=== PATIENT | female | born 1970 | race African-American/Black ===

== ENCOUNTER 2017-05-06 08:10 | Emergency (ER) | payer BC ==
[2017-05-06] MEDS ORDERED: FENTANYL CITRATE INJ/PF 100 MCG/2 ML AMPUL IV ONE (10:03)
--- NOTE | 2017-05-06 10:04 | ER Document Report ---
ED GI/ <KING LEWIS - Last Filed: 05/06/17 15:21> - General Mode of Arrival: Ambulatory Information source: Patient TRAVEL OUTSIDE OF THE [place] IN LAST 30 DAYS: No - HPI Patient complains to provider of: Abdominal pain Onset: Yesterday Location: Other - vin-umbilical Associated symptoms: Other - see notes above <JOHN GARAY - Last Filed: 05/06/17 15:31> - General Chief Complaint: Abdominal Pain Stated Complaint: ABDOMINAL PAIN Notes: 46 year old female with history of an umbilical hernia (2013 surgery secondary to incarcerated umbilical hernia) presents to the ED complaining of vin- umbilical abdominal pain which radiates to the right upper and left upper quadrants that started yesterday. Patient reports that she is unable to sleep secondary to the pain. Patient reports having normal bowel movements and passing gas with her last bowel movement yesterday. Patient denies nausea, vomiting, diarrhea, fever, or any bloody stools. Patient denies history of a hysterectomy. (JOHN GARAY) - Related Data Allergies/Adverse Reactions: No Known Allergies Allergy (Verified 10/01/13 06:54) Past Medical History - General Information source: Patient - Social History Smoking Status: Never Smoker Chew tobacco use (# tins/day): No Frequency of alcohol use: None Drug Abuse: None Family History: Reviewed & Not Pertinent Patient has suicidal ideation: No Patient has homicidal ideation: No Pulmonary Medical History: Reports: Hx Asthma Neurological Medical History: Reports: Hx Seizures - None since she was 7 years old Endocrine Medical History: Denies: Hx Diabetes Mellitus Type 1, Hx Diabetes Mellitus Type 2 Renal/ Medical History: Denies: Hx Peritoneal Dialysis GI Medical History: Reports: Other - umbilical hernia and history of incarcerated umbilical hernia (2013) Musculoskeltal Medical History: Reports Hx Arthritis Past Surgical History: Reports: Hx Section - X 3, Hx Herniorrhaphy - Immunizations Hx Diphtheria, Pertussis, Tetanus Vaccination: No <JOHN GARAY - Last Filed: 05/06/17 15:31> Review of Systems - Review of Systems Constitutional: No symptoms reported EENT: No symptoms reported Cardiovascular: No symptoms reported Respiratory: No symptoms reported Gastrointestinal: See HPI, Abdominal pain - vin-umbilical, Last bowel movement - yesterday; normal. denies: Diarrhea, Nausea, Vomiting, Black stools Genitourinary: No symptoms reported Female Genitourinary: No symptoms reported Musculoskeletal: No symptoms reported Skin: No symptoms reported Hematologic/Lymphatic: No symptoms reported Neurological/Psychological: No symptoms reported -: Yes All other systems reviewed and negative <JOHN GARAY - Last Filed: 05/06/17 15:31> Physical Exam - General General appearance: Alert In distress: None - HEENT Head: Normocephalic, Atraumatic Eyes: Normal Extraocular movements intact: Yes Pupils: PERRL - Respiratory Respiratory status: No respiratory distress Breath sounds: Normal - Cardiovascular Rhythm: Regular Heart sounds: Normal auscultation - Abdominal Inspection: Normal Bowel sounds: Normal Tenderness: Tender - umbilical tenderness to palpation with no evidence of induration or warmth. - Back Back: Normal - Extremities General upper extremity: Normal inspection, Normal ROM General lower extremity: Normal inspection, Normal ROM - Neurological Neuro grossly intact: Yes Cognition: Normal Orientation: AAOx4 Kavitha Coma Scale Eye Opening: Spontaneous Kavitha Coma Scale Verbal: Oriented Kavitha Coma Scale Motor: Obeys Commands [place] Coma Scale Total: 15 Speech: Normal - Psychological Associated symptoms: Normal affect, Normal mood - Skin Skin Temperature: Warm Skin Moisture: Dry Skin Color: Normal <JOHN GARAY - Last Filed: 05/06/17 15:31> - Vital signs Vitals: Temp Pulse Resp BP Pulse Ox 98.4 F 74 16 129/85 H 98 05/06/17 08:14 05/06/17 08:14 05/06/17 08:14 05/06/17 08:14 05/06/17 08:14 Course - Laboratory Result Diagrams: 05/06/17 10:50 05/06/17 12:27 <KING LEWIS H - Last Filed: 05/06/17 15:21> - Laboratory Result Diagrams: 05/06/17 10:50 05/06/17 12:27 <JOHN GARAY - Last Filed: 05/06/17 15:31> - Re-evaluation Re-evalutation: 05/06/17 15:21 Patient well-appearing symptoms improved with medications. Patient is shown to have herniated fat hernia. There is no evidence of strangulated or incarcerated bowel on CT scan. Discussed findings with patient as her symptoms are well controlled will provide narcotics and Zofran. She is to follow-up with her primary care physician in regards to a surgery referral. Strict abdominal pain return precautions provided and I discussed in detail regarding return precautions including nausea vomiting or fevers she always has risk of incarcerated or herniation of bowel but no signs of that at this time (KING LEWIS) - Vital Signs Vital signs: Temp Pulse Resp BP Pulse Ox 98.2 F 69 16 149/77 H 100 05/06/17 15:19 05/06/17 15:19 05/06/17 15:19 05/06/17 15:19 05/06/17 15:19 - Laboratory Laboratory results interpreted by me: 05/06/17 05/06/17 10:50 13:44 Hgb 11.6 L Hct 35.6 L RDW 16.1 H Urine Blood LARGE H Discharge <KING LEWIS - Last Filed: 05/06/17 15:21> <JOHN GARAY - Last Filed: 05/06/17 15:31> - Discharge Clinical Impression: Fatty hernia of linea alba Condition: Good Disposition: HOME, SELF-CARE Instructions: Abdominal Pain ([facility]) Additional Instructions: Please follow up with your primary care provider regarding your visit to the ED today. Please return to the ED for any new or worsening symptoms. No lifting over 20 lbs until seen by your primary care provider. Prescriptions: Ondansetron [Zofran Odt 4 mg Tablet] 1 tab PO Q4H PRN #15 tab.rapdis PRN Reason: For Nausea/Vomiting Oxycodone HCl/Acetaminophen [Percocet 5-325 mg Tablet] 1 - 2 tab PO ASDIR PRN # 15 tablet PRN Reason: Forms: Return to Work Scribe Documentation - Scribe Written by Scribe:: Jones Fishman, 05/06/2017 1113 acting as scribe for :: Demetrius <JOHN GARAY - Last Filed: 05/06/17 15:31>
[2017-05-06 11:04] LABS: ABSOLUTE EOSINOPHILS # (AUTO) 0.1 10^3/uL (0.0-0.6); ABSOLUTE LYMPHOCYTES (AUTO) 2.3 10^3/uL (0.5-4.7); ABSOLUTE MONOCYTES (AUTO) 0.5 10^3/uL (0.1-1.4); ABSOLUTE NEUT (AUTO) 2.8 10^3/uL (1.7-8.2); BASOPHILS % (AUTO) 0.9 % (0-2); EOSINOPHILS % (AUTO) 1.4 % (0-6); HEMATOCRIT 35.6 % (36.0-47.0); HEMOGLOBIN 11.6 g/dL (12.0-15.5); LYMPHOCYTES % (AUTO) 40.5 % (13-45); MEAN CORPUSCULAR HEMOGLOBIN 27.5 pg (27.0-33.4); MEAN CORPUSCULAR HGB CONC 32.6 g/dL (32.0-36.0); MEAN CORPUSCULAR VOLUME 84 fl (80-97); PLATELET COUNT 243 10^3/uL (150-450); RED BLOOD COUNT 4.22 10^6/uL (3.72-5.28); RED CELL DISTRIBUTION WIDTH 16.1 % (11.5-14.0); SEGMENTED NEUTROPHILS % (AUTO) 49.2 % (42-78); TOTAL CELLS COUNTED % (AUTO) 100 %; WHITE BLOOD COUNT 5.7 10^3/uL (4.0-10.5)
[2017-05-06 13:09] LABS: ALANINE AMINOTRANSFERASE 24 U/L (9-52); ALBUMIN 4.4 g/dL (3.5-5.0); ALKALINE PHOSPHATASE 58 U/L (38-126); ANION GAP 12 (5-19); ASPARTATE AMINO TRANSFERASE 26 U/L (14-36); BILIRUBIN,DIRECT 0.3 mg/dL (0.0-0.4); BILIRUBIN,TOTAL 0.4 mg/dL (0.2-1.3); BLOOD UREA NITROGEN 9 mg/dL (7-20); CARBON DIOXIDE 23 mmol/L (22-30); CHLORIDE 106 mmol/L (98-107); GLUCOSE 86 mg/dL (75-110); LIPASE 57.1 U/L (23-300); POTASSIUM 3.7 mmol/L (3.6-5.0); SODIUM 141.2 mmol/L (137-145); TOTAL PROTEIN 7.5 g/dL (6.3-8.2)
--- NOTE | 2017-05-06 14:00 | RADIOLOGY REPORT (SQ) ---
EXAM DESCRIPTION: CT ABD/PELVIS WITH IV ONLY COMPLETED DATE/TIME: 05/06/2017 1:41 pm REASON FOR STUDY: abd pain, hx of hernia repair COMPARISON: 09/02/2013 TECHNIQUE: CT scan of the abdomen and pelvis performed using helical scanning technique with dynamic intravenous contrast injection. No oral contrast. Images reviewed with lung, soft tissue, and bone windows. Reconstructed coronal and sagittal MPR images reviewed. Delayed images for evaluation of the urinary system also acquired. All images stored on PACS. All CT scanners at this facility use dose modulation, iterative reconstruction, and/or weight based d osing when appropriate to reduce radiation dose to as low as reasonably achievable (ALARA). [facility]: Dose Right [facility]: CareDose [facility]: Dose Right [facility]: Teradose 4D [facility]: Stantum CONTRAST TYPE AND DOSE: contrast/concentration: Isovue 370.00 mg/ml; Total Contrast Delivered: 80.0 ml; Total Saline Delivered: 68.0 ml RENAL FUNCTION: Creatinine 0.71 RADIATION DOSE: CT Rad equipment meets quality standard of care and radiation dose reduction techniq ues were employed. CTDIvol: 9.3 - 11.7 mGy. DLP: 1039 mGy-cm.. LIMITATIONS: None. FINDINGS: LOWER CHEST: No significant findings. No nodules or infiltrates. LIVER: Normal size. No masses. No dilated ducts. SPLEEN: Normal size. No focal lesions. PANCREAS: No masses. No significant calcifications. No adjacent inflammation or peripancreatic fluid collections. Pancreatic duct not dilated. GALLBLADDER: No identified stones by CT criteria. No inflammatory changes to suggest cholecystitis. ADRENAL GLANDS: No significant masses or asymmetry. RIGHT KIDNEY AND URETER: No solid masses. No significant calcifications. No hydronephrosis or hyd roureter. LEFT KIDNEY AND URETER: No solid masses. No significant calcifications. No hydronephrosis or hydr oureter. AORTA AND VESSELS: No aneurysm. No dissection. Renal arteries, SMA, celiac without stenosis. RETROPERITONEUM: No retroperitoneal adenopathy, hemorrhage or masses. BOWEL AND PERITONEAL CAVITY: No masses or inflammatory changes. No free fluid or peritoneal masses. APPENDIX: Not visualized. PELVIS: Large fibroid uterus. ABDOMINAL WALL: Fat containing umbilical hernia. Neck of the hernia 1.6 cm in transverse diameter. Transverse diameter of the herniated fat 3.9 cm. No definite herniation of bowel identified. BONES: No significant or acute findings. OTHER: No other significant finding. IMPRESSION: Fat containing umbilical hernia. See above discussion. History is hernia repair is unc lear whether this hernia was previously repaired. Large fibroid uterus. TECHNICAL DOCUMENTATION: JOB ID: [id number] Quality ID # [id number]: Final reports with documentation of one or more dose reduction techniques (e.g., Au tomated exposure control, adjustment of the mA and/or kV according to patient size, use of iterative reconstruction technique) 2010 [employer]- All Rights Reserved
[2017-05-06 14:14] LABS: APPEARANCE,URINE SLIGHTLY-CLOUDY; BILIRUBIN,URINE NEGATIVE (NEGATIVE); COLOR,URINE YELLOW; GLUCOSE, URINE NEGATIVE (NEGATIVE); KETONES,URINE NEGATIVE (NEGATIVE); LEUKOCYTE ESTERASE,URINE NEGATIVE (NEGATIVE); NITRITE,URINE NEGATIVE (NEGATIVE); PROTEIN,URINE NEGATIVE (NEGATIVE); URINE SPECIFIC GRAVITY 1.046; UROBILINOGEN,URINE NEGATIVE mg/dL (<2.0)
[2017-05-06 15:25] VITALS: BP 149/77
== END 2017-05-06 15:27 | disposition home or self-care (01) ==
LOC: ER 08:10
DX: K43.9 Ventral hernia without obstruction or gangrene (principal); R10.33 Periumbilical pain; R10.11 Right upper quadrant pain; R10.12 Left upper quadrant pain; Z98.890 Other specified postprocedural states
CPT/HCPCS: 99284; 96374; 36415; 83690; 84703; 85025; 80053; 81001; 74177; J3010

== ENCOUNTER 2017-05-30 09:41 | Day surgery (SDC) | payer BC ==
[~2017-05-30 09:41] MED LIST: BUPIVACAINE HCL 0.25 % INJ/PF (2.5 MG/1 ML) 30 ML VIAL ONE; CEFAZOLIN 1 GM/D5W RTU 0 GM/0 ML RTUPB IV ONE; CEFAZOLIN 2 GM/D5W RTU 2 GM/50 ML RTUPB IV ONE; DEXAMETHASONE SOD PHOSPHATE INJ 4 MG/1 ML VIAL ONE; EPHEDRINE SULFATE INJ 50 MG/1 ML AMPULE ONE; FENTANYL CITRATE INJ/PF 100 MCG/2 ML AMPUL ONE; GLYCOPYRROLATE INJ 0.4 MG/2 ML VIAL ONE; HYDROMORPHONE HCL INJ/PF 2 MG/ML AMPULE ONE; METOCLOPRAMIDE HCL INJ/PF 10 MG/2 ML SDV ONE; MIDAZOLAM 2 MG/2 ML INJ ONE; NEOSTIGMINE METHYLSULFATE 10 MG/10 ML VIAL ONE; ONDANSETRON HCL INJ/PF 4 MG/2 ML SDV ONE; PROPOFOL INJ 200 MG/20 ML VIAL IV ONE; ROCURONIUM BROMIDE INJ 50 MG/5 ML VIAL IV ONE; SUCCINYLCHOLINE CHLORIDE INJ 200 MG/10 ML VIAL ONE
--- NOTE | 2017-05-30 10:59 | EKG REPORT ---
SEVERITY:- OTHERWISE NORMAL ECG - SINUS RHYTHM VENTRICULAR PREMATURE COMPLEX : Confirmed by: Denise Hackett 30-May-2017 10:58:32
[2017-05-30] MEDS ORDERED: MEPERIDINE HCL/PF INJ 25 MG/1 ML DISP.SYRIN IV PRN (11:04)
[2017-05-30] MEDS ORDERED: PROMETHAZINE HCL INJ 25 MG/1 ML VIAL IV PRN (11:04)
[2017-05-30] MEDS ORDERED: FENTANYL CITRATE INJ/PF 100 MCG/2 ML AMPUL IV PRN ×3 (11:04)
[2017-05-30] MEDS ORDERED: DIPHENHYDRAMINE HCL 50 MG/ML VIAL IV PRN (11:04)
--- NOTE | 2017-05-30 11:53 | Operative Report ---
Operative Report DATE OF SURGERY: 05/30/17 PREOPERATIVE DIAGNOSIS: Recurrent ventral hernia POSTOPERATIVE DIAGNOSIS: Recurrent ventral hernia OPERATION: Recurrent ventral hernia repair SURGEON: LINUS ROBERTO 1ST CLIENT RELATION SPECIALIST: JACQUI ALY ANESTHESIA: GA TISSUE REMOVED OR ALTERED: Hernia sac along with fatty nodule on the hernia sac COMPLICATIONS: None ESTIMATED BLOOD LOSS: Minimal INTRAOPERATIVE FINDINGS: Incarcerated supraumbilical hernia with incarceration of omentum. Fatty nodule on the hernia sac. PROCEDURE: Informed consent was obtained. Patient was brought to the operating room and placed on the operating room table in the supine position. After satisfactory induction of general anesthesia patient's abdomen was prepped and draped in usual sterile fashion. A supraumbilical transverse incision was made overlying the palpable subcutaneous lump. Dissection was carried down dissection revealed a incarcerated ventral hernia about 3 cm above the umbilicus. The hernia sac was dissected free from the surrounding structures. It was opened revealing incarcerated omentum. The omental adhesions were taken off of the hernia sac and the omentum was tucked back into the peritoneal cavity. There was a fatty nodule on the hernia sac that was excised. The hernia sac was excised as well. Hemostasis appeared excellent. The fascial defect measured only 1.2 cm in size. I was able to insert my little finger into this defect, albeit tight, and palpate around to make sure there were no other hernia defects. With this small defect I did not use mesh for the repair. Hernia repair was performed using interrupted Ethibond sutures closing the defect in a transverse direction. The repair came together well without any tension. Marcaine was injected at the operative site. Skin wound was closed with deep dermal interrupted Vicryl sutures followed by running subcuticular Monocryl suture. Patient tolerated procedure well with no apparent complications and was taken to the recovery area in stable condition.
[2017-05-30] MEDS ORDERED: ONDANSETRON HCL INJ/PF 4 MG/2 ML SDV IV PRN (11:56)
[2017-05-30] MEDS ORDERED: RINGERS SOLUTION,LACTATED 1,000 ML IV PRN (11:56)
[2017-05-30] MEDS ORDERED: OXYCODONE-ACETAMINOPHEN 5-325 MG TABLET PO PRN (11:56)
--- NOTE | 2017-05-30 11:56 | PDOC DISCHARGE SUMMARY ---
Discharge Summary (SDC) - Discharge Final Diagnosis: Recurrent incarcerated ventral hernia Date of Surgery: 05/30/17 Discharge Date: 05/30/17 Condition: Good Treatment or Instructions: Recurrent ventral hernia repair. Patient may be discharged home when met discharge criteria. Follow-up with me in 2 weeks. Stay active but avoid strenuous activity. May shower in 2 days. Keep Steri-Strips on. Prescriptions: Oxycodone HCl/Acetaminophen [Percocet 5-325 mg Tablet] 1 tab PO ASDIR PRN #15 tablet PRN Reason: Referrals: JOON MALIK DO [Primary Care Provider] - Discharge Diet: As Tolerated Discharge Activity: Activity As Tolerated - Stay active but avoid strenuous activity. Report the Following to Your Physician Immediately: Fever over 101 Degrees, Unusual Bleeding, Redness, Drainage-Foul Smelling
[2017-05-30] MEDS: FENTANYL CITRATE INJ/PF 100 MCG/2 ML AMPUL ONE ×4 (12:20→12:38)
[2017-05-30 14:18] VITALS: BP 125/75
== END 2017-05-30 14:20 | disposition home or self-care (01) ==
LOC: OROUT 09:41
PROVIDERS: ATTEND Surgery
PROC: 0WQF0ZZ Repair Abdominal Wall, Open Approach (ICD-10-PCS; principal; 2017-05-30 10:00)
DX: K43.0 Incisional hernia with obstruction, without gangrene (principal); I10 Essential (primary) hypertension; Z79.899 Other long term (current) drug therapy
CPT/HCPCS: 49566; 81025; 88302 ×2; 93005; 93010; J2250; J3490; J1100; J3010; J2765; J1170; J0330; J2405; J2704; J0690; 752